=== PATIENT | female | born 1990 | race Caucasian/White ===

== ENCOUNTER 2021-12-12 19:45 | Emergency (ER) | payer OTHER ==
[~2021-12-12] VITALS: Ht 162.6 cm; Wt 64.5 kg
[~2021-12-12 19:45] MED LIST: CYCL-707 PO; IBUP200T46 PO; MEDR4PAK PO
[2021-12-12] MEDS ORDERED: VITMTA PO (19:55)
[2021-12-12] MEDS ORDERED: GABAPENTIN 300 MG CAP PO ONE (20:30)
[2021-12-12] MEDS ORDERED: LIDOCAINE 5% (LIDODERM) PATCH TD ONE (20:30)
[2021-12-12] MEDS ORDERED: **NOTE PATIENT COMMENT** MISC XX SCH (21:00)
[2021-12-12] MEDS ORDERED: NEUR300C PO (22:08)
[2021-12-12 22:11] VITALS: BP 121/74
[2021-12-13] MEDS ORDERED: **NOTE PATIENT COMMENT** MISC XX ONE (09:00)
== END 2021-12-12 22:16 | disposition home or self-care (01) ==
LOC: M ED 19:45
DX: M50.13 Cervical disc disorder with radiculopathy, cervicothoracic region (principal); M25.512 Pain in left shoulder; F17.200 Nicotine dependence, unspecified, uncomplicated; Z87.442 Personal history of urinary calculi; Z88.2 Allergy status to sulfonamides; Z79.899 Other long term (current) drug therapy

== ENCOUNTER 2022-01-09 14:25 | Outpatient (RCR) | payer OTHER ==
[~2022-01-09 14:25] MED LIST changes: +NEUR300C PO; +VITMTA PO
== END 2022-01-11 ==
LOC: M PT 14:25
DX: M54.12 Radiculopathy, cervical region (principal)

== ENCOUNTER 2022-01-30 15:15 | Outpatient (RCR) | payer OTHER | END 2022-02-11 | LOC: M PT 15:15 | DX: M54.12 Radiculopathy, cervical region (principal) ==